=== PATIENT | male | born 1990 | race Caucasian/White ===

== ENCOUNTER → 2020-03-02 17:28 | Outpatient (CLI) | payer BC, SELFPAY | PROVIDERS: Referring Provider Otolaryngology; Visit Provider Otolaryngology | DX: R69 Illness, unspecified (principal) ==

== ENCOUNTER 2020-11-27 12:34 | Emergency (ER) | payer OTHER, SELFPAY ==
[2020-11-27 12:35] VITALS: BP 130/84; PULSE 85; RESP 16; TEMP 36.2; O2SAT 97; BMI 31.8
--- NOTE | 2020-11-27 13:10 | EDS_ITS ---
HPI History of Present Illness Chief Complaint: Laceration Informant: patient Narrative Narrative: 30-year-old male cut the dorsum of his right hand along the first metacarpal on a piece of metal that was on his forklift. He notes he could get the bleeding to stop until he got here. Denies any other injuries. Tetanus Immunization: Unknown [facility] Home Medications No Known/Unobtainable [No Known Home Medications] 02/19/15 [History Last Taken Unknown] Allergy/AdvReac Type Severity Reaction Status Date / Time acetaminophen [From Vicodin] AdvReac HYPER Verified 11/27/20 12:35 hydrocodone bitartrate AdvReac HYPER Verified 11/27/20 12:35 [From Vicodin] Social History (Updated 11/27/20 @ 13:[address] Phoenix Dover, DO) Smoking Status: Former smoker substance use type: does not use ROS ROS ED Constitutional Constitutional ED: Denies chills or weight loss Eyes Eyes: Denies change in vision or diplopia ENT ENT ED: Denies ear pain, rhinorrhea or sore throat Cardiovascular Cardiovascular: Denies chest pain, orthopnea, palpitations or racing heartbeat Respiratory/Chest Respiratory/Chest: Denies cough, dyspnea or orthopnea Gastrointestinal Gastrointestinal: Denies abdominal pain, diarrhea, nausea or vomiting Genitourinary Genitourinary ED: Denies dysuria, hematuria or urinary frequency Musculoskeletal Musculoskeletal: Denies arthralgias or myalgias Integumentary Reports other Details: See HPI ; Denies abscess or rash Neurologic Neurologic: Denies headache(s) or weakness Psychiatric Psychiatric: Denies anxiety, depression, suicidal ideation or suicidal thoughts Endocrine Endocrinology: Denies polydipsia, polyphagia or polyuria Allergic/Immunologic Allergic/Immunologic ED: Denies mouth swelling, tongue swelling or urticaria EXAM Physical Exam Const Vital Signs: 11/27/20 12:35 Temperature 97.2 F L Temperature Source Temporal Pulse Rate 85 Respiratory Rate 16 Blood Pressure 130/84 H Blood Pressure Mean 99 Pulse Ox 97 Oxygen Delivery Method Room Air Positive well nourished and well developed General Appearance ED: well developed HEENT Reports normocephalic, head/scalp atraumatic and moist mucous membranes Eyes PERRL and EOMs intact bilaterally Neck no lymphadenopathy, supple and no JVD Resp normal respiratory effort and clear to auscultation bilaterally Cardio regular rate, regular rhythm and no murmurs GI normal to inspection, nondistended, normoactive bowel sounds and non-tender Palpation: soft Back/Spine no CVA tenderness and normal ROM Extremity full ROM Extremity Narrative: No extensor tendon deficits. Neurologically intact distal to wound General Extremety ED: Negative for edema General Extremity: Negative for edema Neuro oriented x3 and CN's II-XII intact bilaterally Sensorium / Orientation: alert Motor Exam: strength 5/5 throughout Psych mental status grossly normal Mood & Affect: Negative for depressed or tearful Skin no rashes or lesions noted Skin Narrative: There is a 3 cm linear laceration to the dorsum of the right hand along the first metacarpal. MDM MDM MDM Narrative Medical decision making narrative: Wound was locally anesthetized using 1% lidocaine. Was washed with Shur-Clens and explored. A total of 6 simple interrupted 4-0 Ethilon sutures were placed. Good wound approximation was made. Tetanus was updated with Adacel wound care discussed with patient return if worsening or concerns Discharge Plan Triage Chief Complaint: Laceration ED Provider: Phoenix Dover Dx/Rx/DC Orders Clinical Impression: Laceration of hand, right Instructions: ED Laceration Hand with ... Prescriptions: No Action No Known Home Medications RF: 0 Primary Care Provider: Care Physician,No Primary Referrals: [facility] - 10 Day for suture removal Care Physician,No Primary [Primary Care Provider] - Disposition Disposition: Home, Self Care
[2020-11-27] MEDS: Diphth,Pertuss(Acell),Tet Vac 0.5 ML Vial IM (13:23)
[2020-11-27] MEDS: Lidocaine 1% (20 ml mdv) 20 ML Vial INFILT (13:31)
== END 2020-11-27 13:57 | disposition home or self-care (01) ==
LOC: ED 13:40
PROVIDERS: Emergency Provider Emergency Medicine
DX: S61.411A Laceration without foreign body of right hand, initial encounter (principal); W26.8XXA Contact with other sharp object(s), not elsewhere classified, initial encounter; Y93.9 Activity, unspecified; Y92.9 Unspecified place or not applicable; Y99.0 Civilian activity done for income or pay; Z87.891 Personal history of nicotine dependence
CPT/HCPCS: 12002; 90471; 90715; 99283